=== PATIENT | female | born 1945 | race Caucasian/White ===

== ENCOUNTER 2018-02-02 01:30 | Inpatient (IN) | payer MEDICARE, BC ==
--- NOTE | 2018-02-02 01:55 | PCM.HP ---
H&P History of Present Illness - General Date of Service: 02/02/18 Source of Information: Patient, EMS, Family ( Dave) History Limitations: Reports: Other (sleepy) - History of Present Illness Initial Comments - Free Text/Narative: Weakness,Fall at home, unable to get up; this is a 72 year old female direct admit from [facility] For weakness and abdominal pain. She lives at home, progressive weakness, 20 pound weight loss for the past few month. Has been sick for a "long time" years per her . Mrs. Osorio reports abdominal pain radiates to her back for the past 2-3 weeks, reports has not had a bowel movement for 1 month, does past tiny little hard stools. She had a colonoscopy done last fall which was negative. Onset of Symptoms: Reports: Gradual Duration of Symptoms: Reports: Week(s):, Getting Worse Location: Reports: Abdomen, Generalized Severity: Moderate Improves with: Reports: None Worsens with: Reports: None Context: Reports: Other Associated Symptoms: Reports: Confusion, Nausea/Vomiting, Weakness - Related Data Allergies/Adverse Reactions: Allergies Allergy/AdvReac Type Severity Reaction Status Date / Time lactose Allergy Diarrhea Verified 02/02/18 01:48 meloxicam Allergy Headache Verified 02/02/18 01:48 Sulfa (Sulfonamide Allergy Rash Verified 02/02/18 01:48 Antibiotics) Home Medications: Home Meds *Nattokinase 100 mg PO DAILY 02/02/18 [History] Acetaminophen [Acetaminophen Extra Strength] 500 - 1,000 mg PO Q6H PRN 02/02/18 [History] Cholecalciferol (Vitamin D3) [Vitamin D3] 2,000 unit PO DAILY 02/02/18 [History] Chondroitin Sulfate A [Chondroitin Sulfate] 1 cap PO DAILY PRN 02/02/18 [History ] ClonazePAM [KlonoPIN] 0.5 mg PO TID PRN 02/02/18 [History] FLUoxetine HCl [Prozac] 40 g PO DAILY 02/02/18 [History] Metoprolol Succinate [Toprol Xl] 50 mg PO DAILY 02/02/18 [History] Ondansetron [Zofran ODT] 4 mg PO Q6H PRN 02/02/18 [History] Polyethylene Glycol 3350 [MiraLAX] 17 gm PO BID 02/02/18 [History] Sennosides [Senna] 1 tab PO DAILY PRN 02/02/18 [History] oxyCODONE HCl/Acetaminophen [Percocet 7.5-325 mg Tablet] 1 - 2 tab PO Q4H PRN [History] H&P Review of Systems - Review of Systems: Review Of Systems: See Below General: Reports: Weakness, Fatigue, Decreased Appetite HEENT: Reports: No Symptoms Pulmonary: Reports: No Symptoms Cardiovascular: Reports: No Symptoms Gastrointestinal: Reports: Abdominal Pain, Constipation, Decreased Appetite, Difficulty Swallowing, Nausea Genitourinary: Reports: Frequency, Flank Pain Musculoskeletal: Reports: Joint Swelling, Muscle Pain, Muscle Stiffness Skin: Reports: Other (Right second and third toe with redness activities due to clipping nails too short) Psychiatric: Reports: Depression Neurological: Reports: No Symptoms Hematologic/Lymphatic: Reports: No Symptoms Immunologic: Reports: No Symptoms Exam - Exam Exam: See Below - Exam General: Alert, Oriented, Cooperative, Mild Distress, Sedated HEENT: PERRLA, Hearing Intact, Mucosa Moist & [place], Nares Patent, Normal Nasal Septum, Posterior Pharynx Clear, Conjunctiva Clear, EOMI, EACs Clear, TMs Clear Neck: Supple Lungs: Clear to Auscultation, Normal Respiratory Effort Cardiovascular: Regular Rate, Regular Rhythm GI/Abdominal Exam: Normal Bowel Sounds, Soft, Non-Tender, No Organomegaly, No Distention, No Abnormal Bruit, No Mass, Pelvis Stable (Female) Exam: Deferred Rectal (Female) Exam: Deferred Extremities: Normal Inspection, Normal Range of Motion, Non-Tender, No Pedal Edema, Normal Capillary Refill Peripheral Pulses: 3+: Posterior Tibial (L) Skin: Warm, Dry, Intact Neurological: Reflexes Equal Bilateral, Strength Equal Bilateral, Normal Speech Neuro Extensive - Mental Status: Alert, Oriented x3, Normal Mood/Affect, Normal Cognition Neuro Extensive - Motor, Sensory, Reflexes: Normal Reflexes Psychiatric: Alert, Depressed *Q Meaningful Use (ADM) - VTE *Q VTE Criteria *Q: - Stroke *Q Stroke Criteria *Q: - AMI *Q AMI Criteria *Q: - Problem List (1) Weakness generalized SNOMED Code(s): 64528319 ICD Code: R53.1 - WEAKNESS Status: Acute Priority: High Current Visit: Yes (2) Acute renal failure superimposed on chronic kidney disease SNOMED Code(s): 788419864 ICD Code: N17.9 - ACUTE KIDNEY FAILURE, UNSPECIFIED; N18.9 - CHRONIC KIDNEY DISEASE, UNSPECIFIED Status: Acute Priority: High Current Visit: Yes (3) Fall SNOMED Code(s): 5116003 ICD Code: W19.XXXA - UNSPECIFIED FALL, INITIAL ENCOUNTER Status: Acute Priority: High Current Visit: Yes Qualifiers: Encounter type: initial encounter Qualified Code(s): W19.XXXA - Unspecified fall, initial encounter Problem List Initiated/Reviewed/Updated: Yes Assessment/Plan Comment:: ASSESSMENT / PLAN: Direct admission from [facility] emergency room - Weakness,Fall at home, unable to get up; this is a 72 year old female direct admit from [facility] ER. For weakness and abdominal pain. She lives at home, progressive weakness, 20 pound weight loss for the past few month. Has been sick for a "long time" years per her . Mrs. Osorio reports abdominal pain radiates to her back for the past 2-3 weeks, reports has not had a bowel movement for 1 month, does past tiny little hard stools. She had a colonoscopy done last fall which was negative. While in the ER, CBC negative, BMP negative, head CT negative, lactic acid 1.7, EKG chronic atrial fibrillation Plan Weakness, constipation 1 month -Admit to ICU overflow for further monitoring -MiraLAX 17 g by mouth twice a day when necessary -Senna plus 1 tablet by mouth daily when necessary -Deflux Colace 100 mg by mouth twice a day when necessary -IV Fluids for rehydration NS at 125 mL per hour -Imaging abdomen flat one view chest right one view -And a.m. labs: CBC, CMP, PTH with calcium Maintenance issues -Orders home meds: Ordered and others placed on hold -Nutrition: Soft diet -Crenshaw catheter not indicated at this time -DVT: SCD -PPI: IV Protonix 40mg daily -consult OT for discharge planning -consult PT for strengthening. -consult Spiritual CODE STATUS: FULL CODE Admission status: Admit to ICU med overflow Admission justification. This patient will be admitted for inpatient services and is medically appropriate meeting medical necessity for inpatient admission as outlined in my documentation. I reasonably expect the patient will require inpatient services that span. Time over 2 midnights. I reasonably expect this patient to be discharged or transferred within 96 hours after admission to the [facility]. Disposition: possible Care Home or acute rehabilitation placement Primary care provider: Dr. Giang [facility] Hospitalist: Dr. aNvarro
[2018-02-02] MEDS ORDERED: Acetaminophen/HYDROcodone 325-5 MG Tab PO PRN (03:04)
[2018-02-02] MEDS ORDERED: Ondansetron 4 MG/2 ML SDV IV PRN (03:04)
[2018-02-02] MEDS ORDERED: Ondansetron 4 MG Tab.DIS PO PRN (03:04)
[2018-02-02] MEDS ORDERED: Sodium Chloride 0.9% 1,000 ML IV SCH (03:04)
[2018-02-02] MEDS ORDERED: ClonazePAM 0.5 MG Tab PO PRN (03:04)
[2018-02-02] MEDS ORDERED: Albuterol 0.083% 2.5 MG/3 ML Neb Soln NEB PRN (03:04)
[2018-02-02] MEDS ORDERED: LORazepam 2 MG/ML SDV IV PRN (03:04)
[2018-02-02] MEDS ORDERED: Magnesium Hydroxide 400 MG/5 ML Susp 30 ML Cup PO PRN (03:04)
[2018-02-02] MEDS: Morphine 2 MG/ML Syringe IVPUSH PRN ×2 (03:22→08:18)
[2018-02-02] MEDS ORDERED: Metoprolol Succinate 50 MG Tab.ER PO SCH (09:00)
[2018-02-02] MEDS ORDERED: FLUoxetine 20 MG Cap PO SCH (09:00)
--- NOTE | 2018-02-02 09:14 | CR ---
Abdomen 1V Flat CLINICAL HISTORY: Abdominal pain FINDINGS: The bowel gas pattern is nonobstructive. No abnormal masses are noted. There is some mild g aseous distention of the cecum and ascending colon. Small intestinal gas pattern is nonacute. There i s calcific densities overlying the lower poles of both kidneys which may be urinary. IMPRESSION: Mild distention right colon Nonacute intestinal gas pattern Suspicion for bilateral lower pole renal calculi
--- NOTE | 2018-02-02 09:18 | CR ---
CHEST: AP portable CLINICAL HISTORY:Weakness COMPARISON:None FINDINGS: Lung tovar are clear. Heart and pulmonary vascularity appear normal. There is no effusion or pneumothorax.. IMPRESSION: No acute cardiopulmonary process
[2018-02-02] MEDS: Enoxaparin 30 MG/0.3 ML Syringe SUBCUT SCH (09:20)
[2018-02-02] MEDS: Bisacodyl 5 MG Tab PO SCH (09:20)
[2018-02-02] MEDS: FLUoxetine 20 MG Cap PO SCH (09:21)
[2018-02-02] MEDS: Pantoprazole 40 MG Vial IV SCH (09:21)
--- NOTE | 2018-02-02 10:48 | PCM.PN ---
- General Info Date of Service: 02/02/18 Subjective Update: Ms. Osorio is a 72-year-old woman who was admitted early this morning as a direct transfer from [facility] emergency department in [facility]. She has become progressively more weak over the past few months and has noted instability with walking with recent falls. During that period of time has had upper abdominal pain, nausea vomiting with eating. She did have a colonoscopy approximately 6 months ago that was reported as unremarkable. Recently has been noted to have a worsening of her chronic kidney disease as well as hypercalcemia. Patient herself has difficulty providing much information as she reports that she is forgetful, thinks this has been worse recently although she does not have a formal diagnosis of dementia. Because of her forgetfulness she is unable to provide meaningful information concerning recent symptoms or review of systems. - Patient Data Vitals - Most Recent: Last Vital Signs Temp 97.7 F 02/02/18 07:00 Pulse 81 02/02/18 09:21 Resp 16 02/02/18 07:00 BP 194/93 H 02/02/18 09:21 Pulse Ox 98 02/02/18 07:00 Weight - Most Recent: 178 lb 1.607 oz I&O - Last 24 Hours: Intake & Output 02/01/18 02/02/18 02/02/18 22:59 06:59 14:59 Intake Total 240 Output Total 250 Balance -10 Lab Results Last 24 Hours: Laboratory Results - last 24 hr 02/02/18 02/02/18 02/02/18 Range/Units 05:11 05:11 05:11 WBC 13.0 H (4.5-11.0) K/uL RBC 3.58 (3.30-5.50) M/uL Hgb 11.0 L (12.0-15.0) g/dL Hct 31.4 L (36.0-48.0) % MCV 88 (80-98) fL MCH 31 (27-31) pg MCHC 35 (32-36) % Plt Count 233 (150-400) K/uL Neut % (Auto) 75 H (36-66) % Lymph % (Auto) 11 L (24-44) % Glynn % (Auto) 14 H (2-6) % Eos % (Auto) 0 L (2-4) % Baso % (Auto) 0 (0-1) % Sodium 135 L (140-148) mmol/L Potassium 4.2 (3.6-5.2) mmol/L Chloride 100 (100-108) mmol/L Carbon Dioxide 26 (21-32) mmol/L Anion Gap 13.2 (5.0-14.0) mmol/L BUN 30 H (7-18) mg/dL Creatinine 3.2 H (0.6-1.0) mg/dL Est Cr Clr Drug Dosing 14.88 mL/min Estimated GFR (MDRD) 14 L (>60) Glucose 99 (74-106) mg/dL Calcium 12.4 H* (8.5-10.1) mg/dL Magnesium 1.9 (1.8-2.4) mg/dL Total Bilirubin 0.5 (0.2-1.0) mg/dL AST 46 H (15-37) U/L ALT 20 (12-78) U/L Alkaline Phosphatase 79 (46-116) U/L Total Protein 6.6 (6.4-8.2) g/dL Albumin 2.9 L (3.4-5.0) g/dL Globulin 3.7 H (2.3-3.5) g/dL Albumin/Globulin Ratio 0.8 L (1.2-2.2) TSH, Ultra Sensitive 0.838 (0.358-3.740) uIU/mL Med Orders - Current: Current Medications Hydrocodone Bitart/Acetaminophen ([place] 325-5 Mg) 1 tab PO Q4H PRN PRN Reason: Pain (moderate 4-6) Albuterol (Proventil Neb Soln) 2.5 mg NEB Q4H PRN PRN Reason: Shortness Of Breath/wheezing Bisacodyl (Dulcolax) 5 mg PO DAILY [facility] Last Admin: 02/02/18 09:20 Dose: 5 mg Clonazepam (Klonopin) 0.5 mg PO TID PRN PRN Reason: Anxiety Enoxaparin Sodium (Lovenox) 30 mg SUBCUT DAILY [facility] Last Admin: 02/02/18 09:20 Dose: 30 mg Fluoxetine HCl (Prozac) 40 mg PO DAILY [facility] Last Admin: 02/02/18 09:21 Dose: 40 mg Sodium Chloride (Normal Saline) 1,000 mls @ 75 mls/hr IV ASDIRECTED [facility] Lorazepam (Ativan) 1 mg IV Q6H PRN PRN Reason: Nausea/Vomiting Magnesium Hydroxide (Milk Of Magnesia) 30 ml PO Q12H PRN PRN Reason: Constipation Metoprolol Succinate (Toprol Xl) 50 mg PO DAILY [facility] Last Admin: 02/02/18 09:21 Dose: 50 mg Morphine Sulfate (Morphine) 2 mg IVPUSH Q2H PRN PRN Reason: Pain (severe 7-10) Last Admin: 02/02/18 08:18 Dose: 2 mg Ondansetron HCl (Zofran Odt) 4 mg PO Q6H PRN PRN Reason: Nausea able to take PO Ondansetron HCl (Zofran) 4 mg IV Q4H PRN PRN Reason: Nausea/Vomiting Last Admin: 02/02/18 07:42 Dose: 4 mg Pantoprazole Sodium (Protonix Iv) 40 mg IV DAILY [facility] Last Admin: 02/02/18 09:21 Dose: 40 mg Polyethylene Glycol (Miralax) 17 gm PO BID [facility] Senna/Docusate Sodium (Senna Plus) 1 tab PO BID PRN PRN Reason: Constipation Discontinued Medications Fluoxetine HCl (Prozac) 40,000 mg PO DAILY [facility] Sodium Chloride (Normal Saline) 1,000 mls @ 125 mls/hr IV ASDIRECTED [facility] Last Admin: 02/02/18 03:21 Dose: 125 mls/hr - Exam Quality Assessment: DVT Prophylaxis General: Alert, Cooperative, No Acute Distress Lungs: Clear to Auscultation, Normal Respiratory Effort Cardiovascular: Regular Rate, Regular Rhythm GI/Abdominal Exam: Soft, No Organomegaly, Tender. No: Distended, Guarding, Rigid, Rebound Back Exam: Normal Inspection, Full Range of Motion Extremities: Non-Tender, No Pedal Edema Skin: Warm, Dry, Intact - Problem List Review Problem List Initiated/Reviewed/Updated: Yes - My Orders Last 24 Hours: My Active Orders 02/02/18 10:20 LIPASE [CHEM] Routine 02/02/18 10:30 Sodium Chloride 0.9% @ 75 MLS/HR(1000ml) Sodium Chloride 0.9% [Normal Saline] 1 ,000 ml IV ASDIRECTED 02/02/18 10:33 Consult to Physician [CONS] Routine 02/02/18 10:35 Notify Provider Consults [RC] ASDIRECTED 02/02/18 10:36 Abdomen Pelvis wo Cont [CT] Stat 02/03/18 05:00 BASIC METABOLIC PANEL,BMP [CHEM] Timed CBC WITH AUTO DIFF [HEME] Timed 02/03/18 Breakfast Nothing per Oral After Midnight Diet [DIET] - Plan Plan:: ASSESSMENT / PLAN NAUSEA AND VOMITING ASSOCIATED WITH UPPER ABDOMINAL PAIN-symptoms of been present over the past several months associated with progressive weakness as well as constipation. Previous colonoscopy reported as unremarkable -Consult Dr. Franklin for surgical opinion and EGD in a.m. -CT scan of the abdomen with oral contrast -Consider HIDA scan to rule out gallbladder disease -IV Fluids for rehydration NS at 50 mL per hour HYPERCALCEMIA-apparently has had recent evaluation at the clinic in [place] -Obtain clinic records from [place] to review recent evaluation ACUTE ON CHRONIC KIDNEY DISEASE-at baseline has chronic kidney disease stage IV , history of recent worsening -Obtain records from [place] -Monitor urine output and renal function closely during hospital stay DEMENTIA-history of recent progression of incline and cognitive function and memory. CT scan of the head obtained in [place] shows no acute abnormalities. PAROXYSMAL ATRIAL FIBRILLATION-currently appears to be in sinus rhythm, continue to monitor OBSTRUCTIVE SLEEP APNEA -Continue use of nasal C Pap during hospitalization Maintenance issues -Nutrition: Soft diet, nothing by mouth after midnight -Crenshaw catheter not indicated at this time -DVT: SCD -PPI: IV Protonix 40mg daily -consult OT for discharge planning -consult PT for strengthening. -consult Spiritual CODE STATUS: FULL CODE Admission status: Admit to ICU med overflow Admission justification. This patient will be admitted for inpatient services and is medically appropriate meeting medical necessity for inpatient admission as outlined in my documentation. I reasonably expect the patient will require inpatient services that span. Time over 2 midnights. I reasonably expect this patient to be discharged or transferred within 96 hours after admission to the critical access hospital. Disposition: possible Shelter or acute rehabilitation placement Primary care provider: Dr. Giang, [facility] Hospitalist: Dr. Navarro
[2018-02-02] MEDS ORDERED: Iohexol 300 MG/ML 30 ML Bottle PO ONE (11:03)
[2018-02-02] MEDS: Sodium Chloride 0.9% 1,000 ML IV SCH ×2 (11:39→23:17)
[2018-02-02] MEDS: Polyethylene Glycol 3350 Powder 17 GM Packet PO SCH (11:39)
[2018-02-02] MEDS: hydrALAZINE 10 MG Tab PO SCH ×2 (14:28→23:14)
--- NOTE | 2018-02-02 14:56 | CT ---
CT Abdomen Pelvis wo Cont CLINICAL HISTORY: Upper abdominal pain and vomiting COMPARISON: None TECHNIQUE: Multiple contiguous axial sections were obtained from the level of the lung bases down thr ough the pelvis without and with the IV infusion of iodinated contrast. Oral contrast was not adminis tered. From these images 3D reconstructions were obtained and viewed on a dedicated and independent w orkstation. Auto dosage reduction and iterative reconstruction techniques employed. Total DLP is 938 FINDINGS: Lung bases show some scattered the bronchiectasis. There is patchy fibrosis and pleural par enchymal scarring. There is an 8 x 11 bilobed low-attenuation focus in the dome of the hemidiaphragm. This may represent a small cyst. There is a similar subcentimeter focus in the posterior segment of the right lobe. There is no intrahepatic biliary dilatation. The gallbladder is mildly distended. The common bile duct measures 11 mm. The pancreas is ill-defined. There is some peripancreatic fluid whi ch extends into the left lateral colonic gutter. There is some abdominal pelvic ascites There are a f ew scattered mildly prominent the peripancreatic lymph nodes. These may represent reactive nodes. There are multiple renal calculi bilaterally areas of these appear to be urinary and others appear to be parenchymal. The there may be some tubular ectasia. The ureters have a normal course and caliber. The appendix has a normal appearance. IMPRESSION: Prominent ill-defined pancreas with inflammatory changes in the surrounding fat as well a s fluid extending into the right colonic gutter consistent with acute pancreatitis. There is mild abd ominal pelvic ascites There is gallbladder and common bile duct distention. No definite biliary stone is seen. Bilateral renal calculi without hydronephrosis
[2018-02-03] MEDS: Polyethylene Glycol 3350 Powder 17 GM Packet PO SCH ×3 (00:36→20:17)
[2018-02-03] MEDS: hydrALAZINE 10 MG Tab PO SCH ×4 (07:15→22:50)
[2018-02-03] MEDS ORDERED: Haloperidol Lactate 5 MG/ML SDV IVPUSH ONE (10:45)
[2018-02-03] MEDS ORDERED: Haloperidol Lactate 5 MG/ML SDV IVPUSH PRN (12:37)
[2018-02-03] MEDS: Morphine 2 MG/ML Syringe IVPUSH PRN ×4 (12:49→22:51)
[2018-02-03] MEDS: Enoxaparin 30 MG/0.3 ML Syringe SUBCUT SCH (12:54)
[2018-02-03] MEDS: Pantoprazole 40 MG Vial IV SCH (12:54)
[2018-02-03] MEDS: FLUoxetine 20 MG Cap PO SCH (12:54)
[2018-02-03] MEDS: Bisacodyl 5 MG Tab PO SCH (12:57)
[2018-02-03] MEDS: Metoprolol Succinate 50 MG Tab.ER PO SCH (13:03)
--- NOTE | 2018-02-03 13:11 | MR ---
MRI CHOLANGIOPANCREATOGRAPHY CLINICAL HISTORY: Pancreatitis COMPARISON: CT abdomen 02/02/2018 TECHNIQUE: Multiple images of the biliary system were obtained. All images were obtained on a 1.5 Y[place]elin la Siemens unit. FINDINGS: No intrahepatic biliary ductal dilatation is identified. The the gallbladder is mildly dist ended but appears to have decreased since the prior CT. Common bile duct measures 9 mm. There is some mild pancreatic ductal dilatation ranging between 4 and 5 mm. Both the pancreatic duct and the dista l common bile duct and abruptly near the sphincter Norbert without definite continuity to the duodenum. There is some soft tissue fullness at the ampulla There is fluid around the pancreas extending into the left colonic gutter. There is scattered the sma ll pockets of ascites. Patient also has a left pleural effusion. There are multiple small cysts seen in both kidneys IMPRESSION: Mild gallbladder ,common bile duct and pancreatic duct dilatation. The common bile duct e nds abruptly near the sphincter of Igor. There is soft tissue fullness in the ampulla. This could feas ibly represent a distal common duct stone and inflammation area but an ampullary mass cannot be exclu ded. Endoscopy should be considered. Changes of pancreatitis with some ascites previously described
[2018-02-03] MEDS: Lactated Ringers 1,000 ML IV SCH (14:41)
--- NOTE | 2018-02-03 16:45 | PCM.PN ---
- General Info Date of Service: 02/03/18 Subjective Update: Ms. Osorio has remained stable over the past 24 hours, abdominal pain has improved and lipase level significantly improved but still elevated. MRCP was obtained today and shows dilated ducts and evidence of either a stone or mass at the ampulla of Vater. She will require transfer for ERCP, because of the weekend we'll try and facilitate this for tomorr or Tuesday. - Review of Systems General: Reports: Weakness. Denies: Fever, Chills Pulmonary: Reports: No Symptoms Cardiovascular: Reports: No Symptoms Gastrointestinal: Reports: Abdominal Pain, Decreased Appetite. Denies: Difficulty Swallowing, Nausea, Vomiting - Patient Data Vitals - Most Recent: Last Vital Signs Temp 99.2 F 02/03/18 13:14 Pulse 73 02/03/18 13:14 Resp 18 02/03/18 13:14 BP 176/82 H 02/03/18 13:14 Pulse Ox 96 02/03/18 13:14 Weight - Most Recent: 178 lb 9.191 oz I&O - Last 24 Hours: Intake & Output 02/03/18 02/03/18 02/03/18 06:59 14:59 22:59 Intake Total 840 Output Total 600 Balance 840 -600 Lab Results Last 24 Hours: Laboratory Results - last 24 hr 02/02/18 02/03/18 02/03/18 Range/Units 08:23 04:39 04:39 WBC 12.6 H (4.5-11.0) K/uL RBC 2.95 L (3.30-5.50) M/uL Hgb 9.3 L (12.0-15.0) g/dL Hct 26.1 L (36.0-48.0) % MCV 89 (80-98) fL MCH 32 H (27-31) pg MCHC 36 (32-36) % Plt Count 199 (150-400) K/uL Neut % (Auto) 79 H (36-66) % Lymph % (Auto) 6 L (24-44) % [place]key % (Auto) 15 H (2-6) % Eos % (Auto) 0 L (2-4) % Baso % (Auto) 0 (0-1) % Sodium 136 L (140-148) mmol/L Potassium 4.1 (3.6-5.2) mmol/L Chloride 104 (100-108) mmol/L Carbon Dioxide 25 (21-32) mmol/L Anion Gap 11.1 (5.0-14.0) mmol/L BUN 37 H (7-18) mg/dL Creatinine 2.5 H (0.6-1.0) mg/dL Est Cr Clr Drug Dosing 19.15 mL/min Estimated GFR (MDRD) 19 L (>60) Glucose 83 (74-106) mg/dL Calcium 10.6 H (8.5-10.1) mg/dL Total Bilirubin 0.6 (0.2-1.0) mg/dL AST 34 (15-37) U/L ALT 15 (12-78) U/L Alkaline Phosphatase 76 (46-116) U/L Total Protein 5.8 L (6.4-8.2) g/dL Albumin 2.2 L (3.4-5.0) g/dL Globulin 3.6 H (2.3-3.5) g/dL Albumin/Globulin Ratio 0.6 L (1.2-2.2) Lipase 1371 H (73-393) U/L Urine Color Yellow Urine Appearance Cloudy Urine pH 5.0 (4.5-8.0) Ur Specific [place] 1.020 (1.008-1.030) Urine Protein Negative (NEGATIVE) mg/dL Urine Glucose (UA) Normal (NEGATIVE) mg/dL Urine Ketones Negative (NEGATIVE) mg/dL Urine Occult Blood Negative (NEGATIVE) Urine Nitrite Negative (NEGATIVE) Urine Bilirubin Small (NEGATIVE) Urine Urobilinogen Normal (NORMAL) mg/dL Ur Leukocyte Esterase Moderate (NEGATIVE) Urine RBC Not seen (0-5) Urine WBC 20-30 H (0-5) Ur Epithelial Cells Few Amorphous Sediment Few Urine Bacteria Many Urine Mucus Not seen Urine Other Med Orders - Current: Current Medications Hydrocodone Bitart/Acetaminophen ([place] 325-5 Mg) 1 tab PO Q4H PRN PRN Reason: Pain (moderate 4-6) Albuterol (Proventil Neb Soln) 2.5 mg NEB Q4H PRN PRN Reason: Shortness Of Breath/wheezing Bisacodyl (Dulcolax) 5 mg PO DAILY [facility]ANCY Last Admin: 02/03/18 12:57 Dose: 5 mg Clonazepam (Klonopin) 0.5 mg PO TID PRN PRN Reason: Anxiety Divalproex Sodium (Divalproex Sodium) 250 mg PO BIDMEALS [facility] Enoxaparin Sodium (Lovenox) 30 mg SUBCUT DAILY [facility] Last Admin: 02/03/18 12:54 Dose: 30 mg Fluoxetine HCl (Prozac) 40 mg PO DAILY [facility] Last Admin: 02/03/18 12:54 Dose: 40 mg Haloperidol Lactate (Haldol) 1 mg IVPUSH Q2H PRN PRN Reason: Agitation Hydralazine HCl (Apresoline) 10 mg PO Q6H [facility] Lactated Ringer's (Ringers, Lactated) 1,000 mls @ 75 mls/hr IV ASDIRECTED [facility] Last Admin: 02/03/18 14:41 Dose: 75 mls/hr Magnesium Hydroxide (Milk Of Magnesia) 30 ml PO Q12H PRN PRN Reason: Constipation Melatonin (Melatonin) 9 mg PO BEDTIME [facility] Metoprolol Succinate (Toprol Xl) 100 mg PO DAILY [facility] Last Admin: 02/03/18 13:03 Dose: 100 mg Morphine Sulfate (Morphine) 2 - 4 mg IVPUSH Q2H PRN PRN Reason: Pain (severe 7-10) Ondansetron HCl (Zofran Odt) 4 mg PO Q6H PRN PRN Reason: Nausea able to take PO Ondansetron HCl (Zofran) 4 mg IV Q4H PRN PRN Reason: Nausea/Vomiting Last Admin: 02/02/18 07:42 Dose: 4 mg Pantoprazole Sodium (Protonix Iv) 40 mg IV DAILY [facility] Last Admin: 02/03/18 12:54 Dose: 40 mg Polyethylene Glycol (Miralax) 17 gm PO BID [facility] Last Admin: 02/03/18 12:58 Dose: Not Given Senna/Docusate Sodium (Senna Plus) 1 tab PO BID PRN PRN Reason: Constipation Discontinued Medications Fluoxetine HCl (Prozac) 40,000 mg PO DAILY [facility] Haloperidol Lactate (Haldol) 1 mg IVPUSH ONETIME ONE Stop: 02/03/18 10:46 Last Admin: 02/03/18 11:20 Dose: 1 mg Hydralazine HCl (Apresoline) 10 mg PO Q8H [facility] Last Admin: 02/03/18 13:00 Dose: 10 mg Sodium Chloride (Normal Saline) 1,000 mls @ 125 mls/hr IV ASDIRECTED [facility] Last Admin: 02/02/18 03:21 Dose: 125 mls/hr Sodium Chloride (Normal Saline) 1,000 mls @ 75 mls/hr IV ASDIRECTED [facility] Last Admin: 02/02/18 23:17 Dose: 75 mls/hr Iohexol (Omnipaque) 20 ml PO ONETIME ONE Stop: 02/02/18 11:04 Last Admin: 02/02/18 11:39 Dose: 20 ml Lorazepam (Ativan) 1 mg IV Q6H PRN PRN Reason: Nausea/Vomiting Metoprolol Succinate (Toprol Xl) 50 mg PO DAILY [facility] Last Admin: 02/02/18 09:21 Dose: 50 mg Morphine Sulfate (Morphine) 2 mg IVPUSH Q2H PRN PRN Reason: Pain (severe 7-10) Last Admin: 02/03/18 12:49 Dose: 2 mg - Exam Quality Assessment: DVT Prophylaxis General: Alert, Oriented, Cooperative, Mild Distress Lungs: Clear to Auscultation, Normal Respiratory Effort Cardiovascular: Regular Rate, Regular Rhythm, No Murmurs GI/Abdominal Exam: Soft, No Organomegaly, No Distention, Tender. No: Distended , Guarding, Rigid, Rebound Extremities: Non-Tender, No Pedal Edema Skin: Warm, Dry, Intact - Problem List Review Problem List Initiated/Reviewed/Updated: Yes - My Orders Last 24 Hours: My Active Orders 02/03/18 09:00 Metoprolol Succinate [Toprol XL] 100 mg PO DAILY 02/03/18 09:09 CULTURE URINE [RM] Stat 02/03/18 12:37 Haloperidol Lactate [Haldol] 1 mg IVPUSH Q2H PRN 02/03/18 12:45 Lactated Ringers [Ringers, Lactated] 1,000 ml IV ASDIRECTED 02/03/18 16:38 Morphine 2 - 4 mg IVPUSH Q2H PRN 02/03/18 16:45 hydrALAZINE [Apresoline] 10 mg PO Q6H 02/03/18 17:00 Divalproex Sodium 250 mg PO BIDMEALS 02/03/18 21:00 Melatonin 9 mg PO BEDTIME 02/04/18 05:00 CBC WITH AUTO DIFF [HEME] Timed COMPREHENSIVE METABOLIC PN,CMP [CHEM] Timed LIPASE [CHEM] Timed MAGNESIUM [CHEM] Timed - Plan Plan:: ASSESSMENT / PLAN PANCREATITIS WITH MASS OR STONE AT THE AMPULLA OF VATER- CT scan obtained yesterday showed evidence of inflammation in the pancreas consistent with pancreatitis. Lipase level was significantly elevated. MRCP obtained today shows evidence of dilated ducts and either mass or stone at the ampulla of water. -Nothing by mouth -Pain medication as needed -Anti-medic therapy as needed -Repeat lipase level in a.m. -Will require transfer to tertiary care center for ERCP HYPERCALCEMIA-apparently has had recent evaluation at the clinic in [place]. Calcium level improved following hydration, PTH level pending -Obtain clinic records from [place] to review recent evaluation ACUTE ON CHRONIC KIDNEY DISEASE-at baseline has chronic kidney disease stage IV , history of recent worsening -Obtain records from [place] -Monitor urine output and renal function closely during hospital stay DEMENTIA-history of recent progression of incline and cognitive function and memory. CT scan of the head obtained in [place] shows no acute abnormalities. She has developed mild hyperactive delirium over the past 24 hours -Melatonin 9 mg by mouth daily at bedtime -Depakote 250 mg by mouth twice a day -Haldol 1 mg IV every 2 hours as needed for agitation PAROXYSMAL ATRIAL FIBRILLATION-currently appears to be in sinus rhythm, continue to monitor OBSTRUCTIVE SLEEP APNEA -Continue use of nasal C Pap during hospitalization Maintenance issues -Nutrition: Soft diet, nothing by mouth after midnight -Crenshaw catheter not indicated at this time -DVT: SCD -PPI: IV Protonix 40mg daily -consult OT for discharge planning -consult PT for strengthening. -consult Spiritual CODE STATUS: FULL CODE Admission status: Admit to ICU med overflow Admission justification. This patient will be admitted for inpatient services and is medically appropriate meeting medical necessity for inpatient admission as outlined in my documentation. I reasonably expect the patient will require inpatient services that span. Time over 2 midnights. I reasonably expect this patient to be discharged or transferred within 96 hours after admission to the critical access hospital. Disposition: possible Senior Living or acute rehabilitation placement Primary care provider: Dr. Giang, [place] [facility] Hospitalist: Dr. Navarro
[2018-02-03] MEDS: Divalproex Sodium Delayed-Release 250 MG Tab.CR PO SCH (17:50)
[2018-02-03] MEDS ORDERED: Melatonin 3 MG Tab PO SCH (21:00)
[2018-02-04] MEDS: Lactated Ringers 1,000 ML IV SCH (04:03)
[2018-02-04] MEDS: hydrALAZINE 10 MG Tab PO SCH ×2 (04:04→12:15)
[2018-02-04] MEDS: Morphine 2 MG/ML Syringe IVPUSH PRN ×4 (04:13→14:20)
[2018-02-04] MEDS: Divalproex Sodium Delayed-Release 250 MG Tab.CR PO SCH (08:40)
[2018-02-04] MEDS: Bisacodyl 5 MG Tab PO SCH (08:40)
[2018-02-04] MEDS: Enoxaparin 30 MG/0.3 ML Syringe SUBCUT SCH (08:40)
[2018-02-04] MEDS: Pantoprazole 40 MG Vial IV SCH (08:41)
[2018-02-04] MEDS: Metoprolol Succinate 50 MG Tab.ER PO SCH (08:41)
[2018-02-04] MEDS: Polyethylene Glycol 3350 Powder 17 GM Packet PO SCH (08:41)
[2018-02-04] MEDS: FLUoxetine 20 MG Cap PO SCH (08:41)
[2018-02-04] MEDS ORDERED: Magnesium Sulfate/Water 2 GM in Premix Bag 1 BAG IV ONE (09:00)
--- NOTE | 2018-02-04 12:39 | PCM.DCSUM1 ---
Discharge Summary - Hospital Course Brief History: Ms. Osorio is a 72-year-old woman who was admitted as a direct admission from the emergency department in [place] with a two-month history of nausea vomiting and abdominal pain. These symptoms resulted in progressive weakness, weight loss, and recent falls. - Discharge Data Discharge Date: 02/04/18 Discharge Disposition: DC/Tfer to Acute Hospital 02 Condition: Serious - Discharge Diagnosis/Problem(s) (1) Dehydration SNOMED Code(s): 75589187 ICD Code: E86.0 - DEHYDRATION Status: Acute Current Visit: Yes (2) Hypercalcemia SNOMED Code(s): 39601066 ICD Code: E83.52 - HYPERCALCEMIA Status: Acute Current Visit: Yes (3) Pancreatitis SNOMED Code(s): 95400399 ICD Code: K85.90 - ACUTE PANCREATITIS WITHOUT NECROSIS OR INFECTION, UNSP Status: Acute Current Visit: Yes (4) Ampulla of Vater obstruction syndrome SNOMED Code(s): 048506080 ICD Code: K83.1 - OBSTRUCTION OF BILE DUCT Status: Acute Current Visit: Yes (5) Weakness generalized SNOMED Code(s): 40950667 ICD Code: R53.1 - WEAKNESS Status: Acute Priority: High Current Visit: Yes (6) Acute renal failure superimposed on chronic kidney disease SNOMED Code(s): 249124640 ICD Code: N17.9 - ACUTE KIDNEY FAILURE, UNSPECIFIED; N18.9 - CHRONIC KIDNEY DISEASE, UNSPECIFIED Status: Acute Priority: High Current Visit: Yes - Patient Summary/Data Consults: Consultations 02/02/18 03:04 Consult to Case Management [CONS] Routine Comment: Physician Instructions: Quantity: Reason for Consult: discharge planning, acute rehab for strengthening Consult to Spiritual Care [CONS] Routine OT Evaluation and Treatment [CONS] Routine Please Evaluate and Treat. OT Reason for Consult: Discharge Planning This query below is only for informational purposes and is not editable. Admission Diagnosis/Problem: Weakness PT Evaluation and Treatment [CONS] Routine Please Evaluate and Treat. PT Reason for Consult: Strengthening This query below is only for informational purposes and is not editable. Admission Diagnosis/Problem: Weakness Hospital Course: Ms. Osorio is a 72-year-old woman who was admitted to this facility as a direct admission from the emergency department at [facility] in [facility]. She has a history of nausea vomiting with upper abdominal pain radiating to her back for the past few months. During this period of time has had significant weight loss associated with progressive weakness and recent falls. On the day of admission and fallen and was unable to get up even with assistance from her . On evaluation in the emergency department [place] she was found to have elevated calcium level at 12.5 and acute on chronic renal insufficiency. At baseline she has chronic kidney disease stage IV, GFR at the time of admission was 14. Parathyroid hormone was obtained at the time of admission and she was given IV fluids for hydration as well as antibiotic therapy. She had improved somewhat by the following morning, lipase level was obtained which was found to be markedly elevated at 8600. CT scan of the abdomen was obtained which showed evidence of acute pancreatitis. She was kept nothing by mouth and given ongoing IV fluids for hydration. MRCP was obtained on the day prior to transfer showed evidence of dilated hepatic and pancreatic ducts as well as probable obstruction at the ampulla of Vater, stone with inflammation versus mass. With hydration her renal function improved and by the time of transfer her GFR was 26. Calcium level also improved with hydration and by the time of transfer was down to normal range at 9.9. Parathyroid hormone level was still pending at the time of transfer. Because of probable obstruction at the ampulla Vater it was felt that she would need transfer for further subspecialty evaluation and probable ERCP. She has been accepted in transfer to [facility] by Dr. Lind and will be transferred via [facility] ambulance. - Patient Instructions Diet: NPO Activity: As Tolerated Other/Special Instructions: Patient will be transferred to [facility] via [facility] for further subspecialty evaluation and management. - Discharge Plan Home Medications: Home Meds *Nattokinase 100 mg PO DAILY 02/02/18 [History] Acetaminophen [Acetaminophen Extra Strength] 500 - 1,000 mg PO Q6H PRN 02/02/18 [History] Cholecalciferol (Vitamin D3) [Vitamin D3] 2,000 unit PO DAILY 02/02/18 [History] Chondroitin Sulfate A [Chondroitin Sulfate] 1 cap PO DAILY PRN 02/02/18 [History ] ClonazePAM [KlonoPIN] 0.5 mg PO TID PRN 02/02/18 [History] FLUoxetine HCl [Prozac] 40 mg PO DAILY 02/02/18 [History] Metoprolol Succinate [Toprol Xl] 50 mg PO DAILY 02/02/18 [History] Ondansetron [Zofran ODT] 4 mg PO Q6H PRN 02/02/18 [History] Polyethylene Glycol 3350 [MiraLAX] 17 gm PO BID 02/02/18 [History] Sennosides [Senna] 1 tab PO DAILY PRN 02/02/18 [History] oxyCODONE HCl/Acetaminophen [Percocet 7.5-325 mg Tablet] 1 - 2 tab PO Q4H PRN [History] Melatonin 9 mg PO BEDTIME tablet 02/04/18 [Rx] Pantoprazole [ProTONIX IV] 40 mg IV DAILY vial 02/04/18 [Rx] hydrALAZINE [Apresoline] 10 mg PO Q6H tablet 02/04/18 [Rx] - Patient Data Vitals - Most Recent: Last Vital Signs Temp 97.0 F 02/04/18 12:13 Pulse 66 02/04/18 12:13 Resp 18 02/04/18 12:13 BP 166/76 H 02/04/18 12:15 Pulse Ox 95 02/04/18 12:13 Weight - Most Recent: 178 lb 9.191 oz I&O - Last 24 hours: Intake & Output 02/03/18 02/04/18 02/04/18 22:59 06:59 14:59 Intake Total 857 Output Total 300 300 Balance 557 -300 Lab Results - Last 24 hrs: Laboratory Results - last 24 hr 02/04/18 02/04/18 Range/Units 05:40 05:40 WBC 11.2 H (4.5-11.0) K/uL RBC 2.66 L (3.30-5.50) M/uL Hgb 8.1 L (12.0-15.0) g/dL Hct 24.2 L (36.0-48.0) % MCV 91 (80-98) fL MCH 31 (27-31) pg MCHC 34 (32-36) % Plt Count 183 (150-400) K/uL Neut % (Auto) 81 H (36-66) % Lymph % (Auto) 5 L (24-44) % [place] % (Auto) 13 H (2-6) % Eos % (Auto) 0 L (2-4) % Baso % (Auto) 0 (0-1) % Sodium 139 L (140-148) mmol/L Potassium 4.0 (3.6-5.2) mmol/L Chloride 107 (100-108) mmol/L Carbon Dioxide 25 (21-32) mmol/L Anion Gap 11.0 (5.0-14.0) mmol/L BUN 35 H (7-18) mg/dL Creatinine 1.9 H (0.6-1.0) mg/dL Est Cr Clr Drug Dosing 25.19 mL/min Estimated GFR (MDRD) 26 L (>60) Glucose 91 (74-106) mg/dL Calcium 9.9 (8.5-10.1) mg/dL Magnesium 1.7 L (1.8-2.4) mg/dL Total Bilirubin 0.6 (0.2-1.0) mg/dL AST 26 (15-37) U/L ALT 13 (12-78) U/L Alkaline Phosphatase 75 (46-116) U/L Total Protein 5.4 L (6.4-8.2) g/dL Albumin 2.0 L (3.4-5.0) g/dL Globulin 3.4 (2.3-3.5) g/dL Albumin/Globulin Ratio 0.6 L (1.2-2.2) Lipase 501 H (73-393) U/L HOWARD Results - Last 24 hrs: Microbiology 02/03/18 09:09 Urine Culture - Preliminary Urine, Clean Catch MIXED POSITIVE SAVITA DAY 1 Med Orders - Current: Current Medications Hydrocodone Bitart/Acetaminophen ([place] 325-5 Mg) 1 tab PO Q4H PRN PRN Reason: Pain (moderate 4-6) Albuterol (Proventil Neb Soln) 2.5 mg NEB Q4H PRN PRN Reason: Shortness Of Breath/wheezing Bisacodyl (Dulcolax) 5 mg PO DAILY [facility] Last Admin: 02/04/18 08:40 Dose: 5 mg Clonazepam (Klonopin) 0.5 mg PO TID PRN PRN Reason: Anxiety Divalproex Sodium (Divalproex Sodium) 250 mg PO BIDMEALS [facility] Last Admin: 02/04/18 08:40 Dose: 250 mg Enoxaparin Sodium (Lovenox) 30 mg SUBCUT DAILY [facility] Last Admin: 02/04/18 08:40 Dose: 30 mg Fluoxetine HCl (Prozac) 40 mg PO DAILY [facility] Last Admin: 02/04/18 08:41 Dose: 40 mg Haloperidol Lactate (Haldol) 1 mg IVPUSH Q2H PRN PRN Reason: Agitation Hydralazine HCl (Apresoline) 10 mg PO Q6H [facility] Last Admin: 02/04/18 12:15 Dose: 10 mg Lactated Ringer's (Ringers, Lactated) 1,000 mls @ 75 mls/hr IV ASDIRECTED [facility] Last Admin: 02/04/18 04:03 Dose: 75 mls/hr Magnesium Hydroxide (Milk Of Magnesia) 30 ml PO Q12H PRN PRN Reason: Constipation Melatonin (Melatonin) 9 mg PO BEDTIME [facility] Last Admin: 02/03/18 20:17 Dose: 9 mg Metoprolol Succinate (Toprol Xl) 100 mg PO DAILY [facility] Last Admin: 02/04/18 08:41 Dose: 100 mg Morphine Sulfate (Morphine) 2 - 4 mg IVPUSH Q2H PRN PRN Reason: Pain (severe 7-10) Last Admin: 02/04/18 12:14 Dose: 4 mg Ondansetron HCl (Zofran Odt) 4 mg PO Q6H PRN PRN Reason: Nausea able to take PO Ondansetron HCl (Zofran) 4 mg IV Q4H PRN PRN Reason: Nausea/Vomiting Last Admin: 02/02/18 07:42 Dose: 4 mg Pantoprazole Sodium (Protonix Iv) 40 mg IV DAILY [facility] Last Admin: 02/04/18 08:41 Dose: 40 mg Polyethylene Glycol (Miralax) 17 gm PO BID [facility] Last Admin: 02/04/18 08:41 Dose: Not Given Senna/Docusate Sodium (Senna Plus) 1 tab PO BID PRN PRN Reason: Constipation Discontinued Medications Fluoxetine HCl (Prozac) 40,000 mg PO DAILY [facility] Haloperidol Lactate (Haldol) 1 mg IVPUSH ONETIME ONE Stop: 02/03/18 10:46 Last Admin: 02/03/18 11:20 Dose: 1 mg Hydralazine HCl (Apresoline) 10 mg PO Q8H [facility] Last Admin: 02/03/18 13:00 Dose: 10 mg Sodium Chloride (Normal Saline) 1,000 mls @ 125 mls/hr IV ASDIRECTED [facility] Last Admin: 02/02/18 03:21 Dose: 125 mls/hr Sodium Chloride (Normal Saline) 1,000 mls @ 75 mls/hr IV ASDIRECTED [facility] Last Admin: 02/02/18 23:17 Dose: 75 mls/hr Magnesium Sulfate 2 gm/ Premix 50 mls @ 25 mls/hr IV ONETIME ONE Stop: 02/04/18 10:59 Last Admin: 02/04/18 08:41 Dose: 25 mls/hr Iohexol (Omnipaque) 20 ml PO ONETIME ONE Stop: 02/02/18 11:04 Last Admin: 02/02/18 11:39 Dose: 20 ml Lorazepam (Ativan) 1 mg IV Q6H PRN PRN Reason: Nausea/Vomiting Metoprolol Succinate (Toprol Xl) 50 mg PO DAILY [facility] Last Admin: 02/02/18 09:21 Dose: 50 mg Morphine Sulfate (Morphine) 2 mg IVPUSH Q2H PRN PRN Reason: Pain (severe 7-10) Last Admin: 02/03/18 12:49 Dose: 2 mg *Q Meaningful Use (DIS) - VTE *Q VTE Criteria *Q: - Stroke *Q Stroke Criteria *Q: - AMI *Q AMI Criteria *Q:
== END 2018-02-04 14:36 | DRG 438 ==
LOC: JP.ICU 01:30 → JP.MS 02-03 09:42
PROVIDERS: ADMIT Hospitalist; ATTEND Hospitalist
DX: K85.90 Acute pancreatitis without necrosis or infection, unspecified (principal); K83.1 Obstruction of bile duct; N17.9 Acute kidney failure, unspecified; N18.4 Chronic kidney disease, stage 4 (severe); E86.0 Dehydration; K59.00 Constipation, unspecified; E83.52 Hypercalcemia; F03.90 Unspecified dementia, unspecified severity, without behavioral disturbance, psychotic disturbance, mood disturbance, and anxiety; G47.33 Obstructive sleep apnea (adult) (pediatric); I48.0 Paroxysmal atrial fibrillation; R53.1 Weakness; W19.XXXA Unspecified fall, initial encounter; Z91.81 History of falling; Y93.9 Activity, unspecified; Y92.009 Unspecified place in unspecified non-institutional (private) residence as the place of occurrence of the external cause; Z88.2 Allergy status to sulfonamides; Z88.8 Allergy status to other drugs, medicaments and biological substances; Z91.011 Allergy to milk products
CPT/HCPCS: 36415; 71045; 71045-26; 74018; 74018-26; 74176; 74176-26; 74181; 74181-26; 80053; 81001; 83690; 83735; 84443; 85025; 87086; 97162-GP; 97165-GO; A9270-GY; C9113; J1630; J1650; J2270; J2405; J3475; J7040; J7120; Q9965